=== PATIENT | female | born 1995 | race Caucasian/White ===

== ENCOUNTER 2019-09-22 23:24 | Emergency (ER) | payer MEDICAID, SELFPAY ==
[2019-09-22 23:25] VITALS: BP 119/68; PULSE 89; RESP 18; TEMP 36.6; O2SAT 98; BMI 28.3
--- NOTE | 2019-09-22 23:57 | ED.VIS.FEGU ---
History of Present Illness Chief Complaint: Female C/O Informant: Patient Pain: Vaginal Pain Onset: Days - 5-6 Context: Gradual Onset Timing: Continuous Quality: Burning Location: - - vaginal; also suprapubic abd aching Current Severity: Moderate Maximum Severity: Moderate Worsened by: - - urinating Relieved by: - - nothing Issue: Negative for: Vaginal bleeding - Vaginal Discharge Quality: Thin, - - clear Severity: Light Associated Symptoms: Dysuria, Urgency. Negative for: Frequency, Hematuria, Missed Period, Irregular Period Sexually: Active, Single Partner Control: No control P: 1 Narrative: Patient presents with vaginal discomfort into her suprapubic area, also causing nausea and vomiting at times, requesting a check for STDs and for possible urine infection. Most of her discomfort is vaginal and is worse with urinating, but she is also having suprapubic discomfort. She also states she was having abdominal problems prior to the onset of the symptoms. Past Medical History - Allergies and Home Meds Allergies/Adverse Reactions: Allergies Penicillins Allergy (Verified 09/22/19 23:28) Rash WRONG Primary Care Physician: Care Physician,No Primary [Primary Care Provider] - Past Medical History: None Lives: Friends Smoking Status: Current every day smoker Review of Systems General: Denies: Chills, Fever, Sweats Eyes: Denies: Visual changes - bilaterally, Diplopia ENT: Denies: Rhinorrhea, Sore throat Cardiovascular: Denies: Chest pain, Palpitations Respiratory: Denies: Dyspnea, Cough, Dyspnea on exertion Gastrointestinal: Reports: Abdominal pain, Nausea, Vomiting. Denies: Diarrhea, Melena, Hematochezia Genitourinary: Reports: Dysuria, - - vagina pain, discharge - see hpi. Denies: Hematuria, Frequency Musculoskeletal: Denies: Back pain, Extremity Pain Skin: Denies: Rash, Wounds Neurological: Denies: Headache, Weakness, Numbness Physical Exam Vital Signs/Narrative: Vital Signs Temp Pulse Resp BP Pulse Ox 09/22/19 23:25 97.9 F 89 18 119/68 98 Inital Vital Signs reviewed: Yes General: Well nourished, Well developed, - - well-appearing, nad Head: Normocephalic, Atraumatic Eyes: Perrl, EOMI ENT: Moist mucous membranes, No rhinorrhea Neck: Supple, Nontender Cardiovascular: Regular rate, Regular rhythm, No murmurs Respiratory: No distress, CTA bilaterally, Chest nontender Abdomen: Soft, Nondistended, Normal bowel sounds, Tender - across lower abd. Negative for: Guarding, Rebound tenderness : Speculum exam: Normal external genitalia, No vaginal lesions, No blood in vault, No active bleeding, Cervicitis - central part of cervix irritated mildly, friable, Thin vaginal discharge - mucousy, white, homogenous Bimanual exam: No cervical motion tenderness, Os closed Back: Nontender, Normal Inspection. Negative for: CVA tenderness Extremities: Nontender, No edema Skin: Normal color, No rash, No Trauma Neurological: Alert, Oriented x3, Cranial nerves II-XII grossly intact, Normal Strength, Normal Sensation, Normal Gait Psychological: Normal affect, Normal Mood Diagnostic/Tx/Re-eval Laboratory Tests 09/23/19 09/23/19 Range/Units 00:00 00:00 Urine Color Yellow (Yellow) Urine Clarity Cloudy (Clear) Urine pH 5.0 (5.0 - 8.0) Ur Specific [place] 1.025 (1.002-1.030) Urine Protein 30 H (Negative) mg/dl Urine Glucose (UA) Normal (Normal) mg/dl Urine Ketones 15 H (Negative) mg/dl Urine Occult Blood Negative (Negative) /ul Urine Nitrite Negative (Negative) Urine Bilirubin 3 H (Negative) mg/dL Urine Urobilinogen 8 H (Normal) mg/dl Ur Leukocyte Esterase 100 H (Negative) /ul Urine RBC 0 SEEN (0-5) /hpf Urine WBC 0-5 SEEN (0-5) /hpf Ur Squamous Epith Cells 0 SEEN (5-10) /hpf Amorphous Sediment 4+ Urine Bacteria 0 SEEN (None Seen) /hpf Urine Mucus 0 SEEN (<or=2+) /hpf Urine Test Negative Negative - Treatment/Re-Evaluation Treatment: Azithromycin, - - rocephin 250 IM - Medical Decision/Diagnostic Studies GC and Chlamydia cultures sent: Yes - and wet prep Wet prep showed a few white blood cells, did not specify any clue cells, and trichomonas was negative. GC and chlamydia were sent, patient is highly suspicious and so was treated empirically, states that her ex-boyfriend that she had intercourse with did have a history of gonorrhea in the past. She does not know if he was treated for it or not. Urine does not appear infected and is negative. Advised to follow-up for symptoms of persist. ED Disposition - Plan for ED Patient: Disposition: Home or Assisted Living Diagnosis: Vaginal discharge Instructions: CERVICITIS (STD), Treated Referrals: Alvin Kapoor MD [STAFF PHYSICIAN] - 1 Week if not improving
[2019-09-23 00:09] LABS: Bacteria 0 SEEN /hpf (None Seen); Mucous, Urine 0 SEEN /hpf (<or=2+); Red Blood Cells-Urine 0 SEEN /hpf (0-5); Squamous Epithelial Cells - UA 0 SEEN /hpf (5-10)
[2019-09-23 00:15] LABS: Color, Urine Yellow (Yellow); Glucose, Dipstick Normal (Normal); Ketone-Dipstick 15 mg/dl (Negative); Leukocyte Esterase-Dipstick 100 /ul (Negative); Nitrite-Dipstick Negative (Negative); Occult Blood-Urine Negative /ul (Negative); Protein-Dipstick 30 mg/dl (Negative); Specific Gravity, Urine 1.025 (1.002-1.030); Urine Clarity Cloudy (Clear); Urine Urobilinogen 8 mg/dl (Normal)
[2019-09-23 00:21] LABS: Internal QC Validated? YES +Cl - CLEAR BKGD; Pregnancy, Urine Negative Negative
[2019-09-23 00:26] LABS: Urine Bilirubin Dipstick 3 mg/dL (Negative)
[2019-09-23 00:28] LABS: Amorphous Sediment 4+; White Blood Cells 0-5 SEEN /hpf (0-5)
[2019-09-23] MEDS: Azithromycin 250 MG Tablet 1000 MG PO (01:01)
[2019-09-23] MEDS: Ibuprofen 600 MG Tablet PO (01:02)
[2019-09-23] MEDS: Ceftriaxone 500 MG Vial 250 MG IM (01:07)
[2019-09-23 02:02] LABS: Chlamydia Trachomatis by PCR Negative (Negative); Neisserai gonorrhoeae by PCR Positive (Negative); Probe Check PASS
--- NOTE | 2019-09-23 02:17 | ED.RN ---
ATTEMPTED TO CALL PT TO UPDATE ON LAB RESULTS, +GONORRHEA, CELL PHONE NOT ABLE TO TAKE MESSAGES, CELL PHONE DID NOT RING. PT DOESN'T NEED FURTHER TREATMENT.
--- NOTE | 2019-11-02 20:24 | ED.RN ---
patient called in and asked about STD test results
== END 2019-09-23 01:20 | disposition home or self-care (01) ==
PROVIDERS: Emergency Provider Emergency Medicine
DX: N89.8 Other specified noninflammatory disorders of vagina (principal); R10.2 Pelvic and perineal pain; R11.2 Nausea with vomiting, unspecified; R30.0 Dysuria; F17.200 Nicotine dependence, unspecified, uncomplicated
CPT/HCPCS: 81001; 81025; 87210; 87491; 87591; 96372; 99283

== ENCOUNTER 2020-03-19 23:29 | Observation (INO) | payer MEDICAID, SELFPAY ==
[2020-03-19 23:30] VITALS: BP 134/91; PULSE 82; RESP 16; TEMP 36.8; O2SAT 100; BMI 27.7
--- NOTE | 2020-03-19 23:39 | CT_ITS ---
STUDY: CT ABDOMEN AND PELVIS WITHOUT CONTRAST REASON FOR EXAM: Female, 25 years old. DIAGNOSED W/ LEFT OVARIAN CYST LAST FRIDAY, DIFFUSE ABD PAIN RADIATION DOSAGE (If Supplied By Facility): CTDIvol = ( 11.12 ) mGy, DLP = ( 778.43 ) mGycm TECHNIQUE: Transaxial images were obtained from the dome of the diaphragm to the symphysis pubis without oral contrast, and without intravenous contrast. Sagittal and coronal images were reconstructed. Individualized dose optimization techniques were used for this CT. COMPARISON: None. FINDINGS: The visualized lung bases are unremarkable. The visualized portions of the heart are within normal limits. Normal liver. Normal gallbladder and extrahepatic biliary system. Normal spleen. Normal pancreas. Normal bilateral adrenal glands. Normal right kidney. Normal left kidney. Normal visualized stomach. Normal small intestine. Normal colon. There is a tubular, thick-walled appendix (> 9 mm), suggesting acute appendicitis. Normal abdominal aorta. Normal inferior vena cava. Normal retroperitoneum. Normal urinary bladder. Follicles are seen in both ovaries. There is enlargement of a left inguinal lymph node measuring 2 x 2 x 2.6 cm suggesting reactive hyperplasia. Normal abdominal wall. Normal osseous structures. CT/Abdomen/Pelvis W IV Cont ONLY IMPRESSION: Possible acute appendicitis. Electronically Signed: Noreen Martel, at 1:01 EDT Tel , Service support ,
[2020-03-20] VITALS (8 sets, daily range): BP systolic 117–145; BP diastolic 62–98; PULSE 68–108; RESP 16–20; TEMP 36.1–36.6; O2SAT 97–100; BMI 27.7; BMI 28.0
[2020-03-20 00:04] LABS: Bacteria 0 SEEN /hpf (None Seen); Mucous, Urine 0 SEEN /hpf (<or=2+); Red Blood Cells-Urine 0 SEEN /hpf (0-5)
[2020-03-20 00:06] LABS: Color, Urine Yellow (Yellow); Glucose, Dipstick Normal (Normal); Ketone-Dipstick Negative (Negative); Leukocyte Esterase-Dipstick 500 /ul (Negative); Nitrite-Dipstick Negative (Negative); Occult Blood-Urine Negative /ul (Negative); Protein-Dipstick 15 mg/dl (Negative); Specific Gravity, Urine 1.015 (1.002-1.030); Urine Bilirubin Dipstick Negative (Negative); Urine Clarity Clear (Clear); Urine Urobilinogen 1 mg/dl (Normal); Urine pH 6.5 (5.0 - 8.0)
[2020-03-20 00:09] LABS: Internal QC Validated? YES +Cl - CLEAR BKGD; Pregnancy, Urine Negative Negative
[2020-03-20 00:13] LABS: Squamous Epithelial Cells - UA 5-10 SEEN /hpf (5-10); White Blood Cells 10-25 SEEN /hpf (0-5)
--- NOTE | 2020-03-20 00:13 | ED.DCSUM_ITS ---
History of Present Illness Chief Complaint: Abd Pain Narrative: Patient presenting for evaluation secondary to abdominal pain. Patient reports that over the course of about the last 2 weeks she has been dealing with abdominal pain. Patient reports last week she was seen at [facility], and had CT imaging of her abdomen and pelvis which showed a 5 cm left-sided ovarian cyst. Patient tells me that she has been having left-sided abdominal pain that is been continuous over the course of the last 2 weeks, it is worse with any sort of movement. This been associated with nausea and occasional vomiting. Patient denies any dysuria. She denies any vaginal bleeding. She denies any diarrhea. Patient states that the pain is now migrated somewhat over to the right side of her abdomen. She tells me that she was told to follow-up with her [employer], she messaged them online and requested an ultrasound but they told her they could not perform an ultrasound until an order was placed by the AUTOMATIC GRINDING MACHINE OPERATOR. She states that she was having continued pain tonight, her [employer] GRINDING MACHINE OPERATOR had not messaged her back, so she decided to call the ambulance to be brought to the emergency department. Patient denies any history of abdominal surgeries. She is unsure if she is . Review of systems otherwise negative. Past Medical History - Allergies and Home Meds Allergies/Adverse Reactions: Allergies Penicillins Allergy (Verified 09/22/19 23:28) Rash WRONG Primary Care Physician: Care Physician,No Primary [Primary Care Provider] - Prior records reviewed: Yes Past Medical History: - - Anxiety Surgical History: no surgical history Lives: With Family Smoking Status: Former smoker Alcohol: Occasional Drugs: Marijuana Review of Systems All systems negative except as indicated General: Denies: Chills, Fever, Sweats Eyes: Denies: Visual changes - bilaterally, Diplopia ENT: Denies: Rhinorrhea, Sore throat Cardiovascular: Denies: Chest pain, Palpitations Respiratory: Denies: Dyspnea, Cough, Dyspnea on exertion Gastrointestinal: Reports: Abdominal pain, Nausea Genitourinary: Denies: Dysuria, Hematuria, Frequency Musculoskeletal: Denies: Back pain, Extremity Pain Skin: Denies: Rash, Wounds Neurological: Denies: Headache, Weakness, Numbness Physical Exam Vital Signs/Narrative: Vital Signs Temp Pulse Resp BP Pulse Ox 03/19/20 23:30 98.2 F 82 16 134/91 H 100 Inital Vital Signs reviewed: Yes General: Well nourished, Well developed, No Acute Distress Head: Normocephalic, Atraumatic Eyes: Perrl, EOMI ENT: Moist mucous membranes, No rhinorrhea Neck: Supple, Nontender Cardiovascular: Regular rate, Regular rhythm, No murmurs Respiratory: No distress, CTA bilaterally, Chest nontender Abdomen: Soft, Nondistended, Normal bowel sounds, Tender - Fuhs nonlocalizing tenderness with no guarding or rebound. No palpable masses. Back: Nontender, Normal Inspection Extremities: Nontender, No edema Skin: Normal color, No rash Neurological: Alert, Oriented x3, Cranial nerves II-XII grossly intact, Normal Strength, Normal Sensation Psychological: Normal affect, Normal Mood Diagnostic/Tx/Re-eval - Medical Decision Making Patient presented secondary to nonlocalizing abdominal pain. IV was established laboratory studies were obtained. CBC unremarkable, chemistry unremarkable. Urinalysis demonstrates evidence of urinary tract infection. CT abdomen and pelvis with IV contrast demonstrates evidence of possible appendicitis with a dilated greater than 9 mm appendix. I went back and reevaluated the patient, she really does not localize her pain over the right lower quadrant, it is more so in the left abdomen but really diffusely with no guarding or rigidity. Patient has no leukocytosis or fever or shift. I discussed patient's case with covering surgery Dr. Wayne, and we decided to do a repeat scan with oral contrast. Repeat CT scan showed nonfilling of the appendix with contrast still concerning for early appendicitis. I discussed this again with covering surgery, decision was made to take the patient for appendectomy ED Disposition - Plan for ED Patient: Disposition: Acute Care Hospital [facility] Diagnosis: Acute appendicitis
[2020-03-20 00:20] LABS: Absolute Neutrophil Count 6.1 X10^3/uL (2.0-7.7); Basophil# 0.07 X10^3/uL; Basophil% 0.7 % (0-1); Hematocrit 41.3 % (37-47); Hemoglobin 13.6 g/dL (12.0-15.0); Lymphocyte % 29.7 % (19-41); Mean Corp Hgb Conc 32.9 g/dL (32-36); Mean Corpuscular Hgb 29.6 pg (27.0-32.0); Mean Platelet Vol. 10.4 fl (6.2-12.0); Monocyte# 0.61 X10^3/uL; Monocyte% 6.3 % (0-10); NRBC Flagged by Analyzer 0 % (0-5); Neutrophil # 6.05 X10^3/uL (2.7-7.7); Platelet Count 286 K/mm3 (150-450); RBC Distribution Width CV 11.6 % (11.6-14.6); RBC Distribution Width SD 37.7 fl (35.1-43.9); Red Blood Count 4.59 M/mm3 (4.2-5.4); White Blood Count 9.8 K/mm3 (4.4-11.0)
[2020-03-20] MEDS: Dicyclomine 20 MG/2 ML Vial IM (00:25)
[2020-03-20 00:32] LABS: Anion Gap 5 (5-15); BUN 10 mg/dL (7-18); Calcium,Total 8.5 mg/dL (8.5-10.1); Chloride 108 mmol/L (98-107); Creatinine, Serum 0.77 mg/dL (0.55-1.02); EST Glomerular Filtration Rate 97 mL/min (>60); Est Glom Filt Rate - Afr Amer 117 mL/min (>60); Estimated Creatinine Clearance 103.65 ml/min; Glucose 87 mg/dL (74-106); Potassium 4.1 mmol/L (3.5-5.1); Sodium Level 139 mmol/L (136-145)
--- NOTE | 2020-03-20 01:22 | CT_ITS ---
STUDY: CT ABDOMEN AND PELVIS WITHOUT CONTRAST REASON FOR EXAM: Female, 25 years old. POSSIBLE APPY. SURGEON REQUEST ORAL CM RADIATION DOSAGE (If Supplied By Facility): CTDIvol = ( 7.37 ) mGy, DLP = ( 366.42 ) mGycm TECHNIQUE: Transaxial images were obtained from the dome of the diaphragm to the symphysis pubis without oral contrast, and without intravenous contrast. Sagittal and coronal images were reconstructed. . Current exam was done at 0316 hours. Individualized dose optimization techniques were used for this CT. COMPARISON: Contrast-enhanced CT scan done 0004 hours. FINDINGS: The visualized lung bases are unremarkable. The visualized portions of the heart are within normal limits. Normal liver. Normal gallbladder and extrahepatic biliary system. Normal spleen. Normal pancreas. Normal bilateral adrenal glands. Normal right kidney. Normal left kidney. Normal visualized stomach. Normal small intestine. Normal colon. The appendix is seen on series 2, axial images 108-116 and it is distended with fluid, with diameter of 1.2 cm. Oral contrast material is seen within the adjacent cecum, however, there is no demonstrated extension of oral contrast into the appendix. There is no infiltration of adjacent fat, however, findings are still highly suspicious for acute appendicitis. Normal abdominal aorta. Normal inferior vena cava. Normal retroperitoneum. Normal urinary bladder. Normal abdominal wall. Normal osseous structures. CT/Abdomen/Pel W ORAL Cont Only IMPRESSION: Enlarged fluid-distended appendix. There is no extension of oral contrast into the appendix and findings are highly suspicious for acute appendicitis. Electronically Signed: Hunter Pulliam MD at 4:04 EDT , Service support ,
[2020-03-20] MEDS: metroNIDAZOLE 500 MG/100 ML BAG 100 MG IV (04:48)
[2020-03-20] MEDS: Ciprofloxacin 400 MG/200 ML BAG 200 MG IV (05:00)
--- NOTE | 2020-03-20 05:32 | PCM.HP.STD ---
Problem List (1) Acute appendicitis Status: Acute Qualifiers: Acute appendicitis type: unspecified acute appendicitis type Qualified Code(s): K35.80 - Unspecified acute appendicitis History of Present Illness Date of Admission: 03/20/20 The patient is a 25 year old F who presents with abdominal pain and nausea and vomiting. Patient reports that she was in the [facility] emergency room about a week ago with left lower quadrant pain. At that time she had a CT scan which showed a left ovarian cyst and at that time her appendix was read as normal. She says that about 2 days ago she started having vomiting and the pain shifted to the right side. No fevers or chills. She is still vomiting today with nausea. Past Medical History Allergies Penicillins Allergy (Verified 09/22/19 23:28) Rash WRONG Home Medications: Ambulatory Orders Medication Instructions Recorded NK 09/22/19 Surgical History: no surgical history Lives: With Family Smoking Status: Former smoker Alcohol: Occasional Drugs: Marijuana - *Family History Maternal History Items: No pertinent history Review of Systems Constitutional: Denies: Anorexia, Fever HEENT: Denies: Difficulty Swallowing Respiratory: Denies: Cough, Shortness of Breath Gastrointestinal: Reports: Abdominal Pain, Nausea, Vomiting Genitourinary: Denies: Dysuria, Frequency Musculoskeletal: Denies: Joint Tenderness Skin: Denies: Jaundice Psychiatric: Reports: Anxiety Hematologic/ Lymphatic: Denies: Anemia VTE Information - Inpt Only VTE Present on Admission: No VTE Mechan Device Prophylaxis: SCD's Patient Problems: Active and Suspected Problems Acute appendicitis (Acute) - Physical Exam Vitals/I&O's: Vital Signs Temp Pulse Resp BP Pulse Ox 97.9 F 79 18 145/98 H 100 03/20/20 04:55 03/20/20 04:55 03/20/20 04:55 03/20/20 04:55 03/20/20 04:55 Oxygen Delivery Method Room Air Weight: 171 lb 15.369 oz Body Mass Index (BMI) 27.7 General: Alert, Oriented x3 Lungs: Normal air movement Cardiovascular: Regular rate, Regular Rhythm Abdomen: Soft, Non-Distended, Tender - Tender in the right lower quadrant with no guarding or rebound Musculoskeletal: No Muscle Wasting Neurological: Cranial nerves II-XII grossly intact Psych/Mental Status: Normal Affect Laboratory Results 03/20/20 00:00: Urine Test Negative 03/20/20 00:00: Urine Color Yellow, Urine Clarity Clear, Urine pH 6.5, Ur Specific [place] 1.015, Urine Protein 15 H, Urine Glucose (UA) Normal, Urine Ketones Negative, Urine Occult Blood Negative, Urine Nitrite Negative, Urine Bilirubin Negative, Urine Urobilinogen 1 H, Ur Leukocyte Esterase 500 H, Urine RBC 0 SEEN, Urine WBC 10-25 SEEN, Ur Squamous Epith Cells 5-10 SEEN, Urine Bacteria 0 SEEN, Urine Mucus 0 SEEN 03/20/20 00:12: WBC 9.8, RBC 4.59, Hgb 13.6, Hct 41.3, MCV 90.0, MCH 29.6, MCHC 32.9, RDW Std Deviation 37.7, RDW Coeff of Linda 11.6, Plt Count 286, MPV 10.4, Immature Gran % (Auto) 0.300, Neut % (Auto) 62.0, Lymph % (Auto) 29.7, [place] % (Auto) 6.3, Eos % (Auto) 1.0, Baso % (Auto) 0.7, Absolute Neuts (auto) 6.1, Absolute Lymphs (auto) 2.90, Nucleated RBC % 0 03/20/20 00:12: Sodium 139, Potassium 4.1, Chloride 108 H, Carbon Dioxide 26.0, Anion Gap 5, BUN 10, Creatinine 0.77, Estim Creat Clear Calc 103.65, Est GFR (MDRD) Af Amer 117, Est GFR (MDRD) Non-Af 97, BUN/Creatinine Ratio 13.0, Glucose 87, Calcium 8.5 03/20/20 04:44: COVID-19 (PRAVEEN) Pending Clinical Impression(s) from Imaging Studies Abdomen/Pelvis CT 03/19/20 23:39 IMPRESSION: Possible acute appendicitis. Electronically Signed: Noreen Martel, at 1:01 EDT Tel , Service support , Abdomen CT 03/20/20 01:22 IMPRESSION: Enlarged fluid-distended appendix. There is no extension of oral contrast into the appendix and findings are highly suspicious for acute appendicitis. Electronically Signed: Hunter Pulliam MD at 4:04 EDT , Service support , Assessment/Plan All Active Problems Acute appendicitis (Acute) Abrasion (Acute) Anger reaction (Acute) 25-year-old female with acute appendicitis 1. Patient reports that she has been having nausea vomiting and pain for [address] scan showed a dilated fluid-filled appendix but her white count and differential are normal. CT scan was repeated with oral contrast and there was no filling of the appendix and this was highly suggestive of acute appendicitis. 2. I discussed laparoscopic appendectomy with the patient in detail. I discussed the possibility of a normal appendix. I discussed the risks including not limited to bleeding, infection, injury to other organ such as the ureter, bowel, colon. Patient agrees to proceed. I did discuss exploration of her ovaries during surgery as well. If needed I will call [employer] if there are any abnormalities to the ovaries. Patient was given Cipro and Flagyl in the emergency room due to penicillin allergy. Patient will go to surgery this morning. 3. We discussed the current risks associated with COVID-19. While it is understood that there is a community spread of COVID-19, the risk of jatin COVID-19 while at [facility] ([facility]) is very low; however, the risk cannot be completely mitigated because of the community spread of the disease. We discussed in detail the risk of exposure to and/or potential harm posed by the COVID-19 virus with having a surgery/procedure at this time versus the risk of delaying the surgery/procedure. It is not possible to know either the risk of delaying the surgery or procedure or chance of getting an infection with perfect accuracy, but a joint decision was made to proceed at this time with the scheduled surgery/procedure as indicated on the consent form. Patient was notified that we will need to comply with any screening or testing [facility] wishes to perform or that surgery may be delayed for any positive results. Abhishek Wayne MD Pager: [facility] [address] [place] [address], [address] [place] [address] Office:
[2020-03-20 06:08] LABS: Probe Check PASS; Specimen Processing Control PASS
[2020-03-20] MEDS: Lactated Ringers 1,000 ML 100 ML IV ×2 (06:09→07:31)
--- NOTE | 2020-03-20 06:09 | APP_PTH ---
PATIENT: ZAKIYA LIGHT LOC: MS3 U#:[id number] AGE/SX: 25/F ROOM: MS313 RE03/20/[address]: Dr. Abhishek Wayne MD : 1995 BED: 1 DIS: 03/20/2020 SPEC #: [id number] RECD: 03/20/20 07:44 STATUS: ISAAC PRINCE #: [id number] VILMA: 03/20/20 06:[address]: Abhishek Wayne DEPT: SURGICAL PATHOLOGY RECD BY: Ann Ruvalcaba ENTERED: 03/20/20 09:14 SP TYPE: APPENDIX OTHR DR: No Primary Care Phys Tissues: A - Appendix, NOS B - Fallopian tube Procedures: Surgery Specimen Level III Surgery Specimen Level IV HEADER OPERATION: Laparoscopic appendectomy PRE-OP DIAGNOSIS: Acute appendicitis TISSUE SUBMITTED: A - Appendix, B - Peritubal mass left fallopian tube MICROSCOPIC DIAGNOSIS A. Appendix, appendectomy: Acute appendicitis. Minimal serosal reactive changes. B. Peritubal mass left fallopian tube: Paratubal cyst. LIBAN:patricia 03/21/20 MICROSCOPIC DESCRIPTION Slides are reviewed. GROSS DESCRIPTION A - Received in fixative is one container labeled with the patient's name and designated appendix. The specimen consists of an appendix measuring 9 cm in length and up to 1 cm in diameter. No gross perforations are evident. Sections reveal a patent lumen with fecal material. No mass lesion is identified. Associate Director Of Biostatistics sections are submitted in one cassette. B - Received in fixative is one container labeled with the patient's name and designated peritubal mass left fallopian tube. The specimen consists of a smooth, glistening cystic structure measuring 2.6 x 2.2 x 2 cm. The external surface is smooth and glistening. The external surface is inked and the specimen is sectioned to reveal smooth, glistening inner cyst wall lining. The wall measures 0.1 cm in average thickness. The cyst contains clear fluid. The specimen is totally submitted in one cassette. / AM:patricia 03/20/20 TC:2 CPT: 34618, [id number]
[2020-03-20] MEDS: Bupiv/Epi 0.25% 30 ML Vial (07:00)
--- NOTE | 2020-03-20 08:00 | OP.PCM_ITS ---
Problem List (1) Acute appendicitis Status: Acute Qualifiers: Acute appendicitis type: unspecified acute appendicitis type Qualified Code(s): K35.80 - Unspecified acute appendicitis Report of Operation Date of Procedure: 03/20/20 Pre-Operative Diagnosis: Acute appendicitis Post-Operative Diagnosis: Acute appendicitis. Left peritubular mass Surgery/Procedure Performed:: Laparoscopic appendectomy. Excision of left peritubular mass Specimen's removed: 1. Appendix. 2. Peritubular mass from the left side Description of Procedure: The patient was brought into the operating room and general anesthesia was induced. The left arm was tucked and the abdomen was prepped and draped in usual sterile fashion. A small midline incision was made superior to the umbilicus and deepened to the level of the fascia. The fascia was elevated and incised. The peritoneum was also elevated and incised. A finger sweep was performed and a balloon trocar was placed into the abdomen and inflated. The abdomen was insufflated to 15 mmHg and the camera was inserted and the abdomen was inspected for any injuries upon entering the abdomen. There were none. The patient was placed in Trendelenburg position and a 5 mm ports placed in the left lower quadrant and suprapubic areas under direct visualization. Next using atraumatic bowel graspers the appendix was identified. The appendix was grasped and elevated and Enseal was used to take down the mesoappendix. A stapler was used to come across the base of the appendix. The appendix was then placed in Endo Catch bag and removed through the umbilical incision. The staple line was inspected and found to be hemostatic and intact. The right ovary was inspected and appeared normal. The left ovary was inspected and appeared normal as well. There was a small cystic structure adjacent to the left fallopian tube. I had Dr. Talbert coming to the operating room and evaluate. She believe this is likely a dermoid cyst and she recommended excision as it was over 2 cm. It appeared to be from the fallopian tube. Using Enseal this was taken from its attachments and placed in an Endo Catch bag and removed. There was good hemostasis on the fallopian tube. The fallopian tube and fimbria were intact at the end of the excision. The 2 5 mm ports are removed under direct visualization. The balloon trocar was deflated and removed and all the air was removed from the abdomen. The umbilical incision fascia was closed with an 0 Vicryl [id number] suture. The incisions were then irrigated with saline and dried. Local anesthetic was injected into the incision sites. The skin incisions were then closed with interrupted 4-0 Monocryl suture and Steri- Strips. Bandages were applied and the patient was awoken and taken to PACU in stable condition. Patient tolerated the procedure well. - Admit VTE Documentation VTE Mechan Device Prophylaxis: SCD's
--- NOTE | 2020-03-20 08:04 | DCINST_ITS ---
Discharge Diet: Light diet - advance as tolerated Discharge Activity: May Not Drive - for 3-5 days or while taking narcotic pain meds. May shower in (days): 1 Lifting Restrictions: 20 lbs for 2 weeks Call your doctor if your incision/area has: Continuous Slow Oozing, Sudden Increased Bleeding, Increased Pain/ Swelling, Increased Redness, Foul Smelling Discharge Call your doctor if you observe: Fever of 101 or Higher Suture Line Care: Avoid Pulling/Pushing, Avoid Pinching/Bending Additional Dressing/Incision Instructions:: Keep dressing clean and dry. Change or remove dressing in 2 days. Leave steri strips for 1 week. May protect with a gauze bandaid. Medications to take at Discharge traMADol [Ultram] 100 mg PO Q6H PRN PRN 4 Days #20 tablet 03/20/20 Allergies/Adverse Reactions: Allergies Penicillins Allergy (Verified 09/22/19 23:28) Rash WRONG Test Results: Test results from this visit will be discussed in further detail at your follow- up appointment, if applicable. Please Follow Up With: Abhishek Wayne MD When: Please call to schedule 2 week follow up appointment. [phone]
[2020-03-20] MEDS: Morphine 2 MG/ML Syringe IV (08:26)
--- NOTE | 2020-03-20 10:49 | PHA.DC.MC ---
Pharmacy Service has performed discharge medication reconciliation and counseling for this patient. The patient was counseled on the following discharge medications and changes in medications for homegoing were reviewed. 1. TRAMADOL The Reason for Use, instructions for use, and potential side effects were reviewed for all new medications. The patient's questions regarding all of their medications were answered. The patient was able to verbally demonstrate an understanding of their discharge medications. Home Medications traMADol [Ultram] 100 mg PO Q6H PRN PRN 4 Days #20 tab 03/20/20 The patient's discharge medication list was reviewed for discrepancies and discrepancies were resolved.
[2020-03-20] MEDS: traMADol 50 MG Tablet 100 MG PO (11:25)
== END 2020-03-20 14:29 | disposition home or self-care (01) ==
LOC: ED 03-20 04:34 → SDC 03-20 04:43 → MS3 03-20 04:51 → SDC 03-20 08:39 → MS3 03-20 08:39
PROVIDERS: Admitting Provider Surgery; Emergency Provider Emergency Medicine; Visit Provider Surgery
PROC: 0DTJ4ZZ Resection of Appendix, Percutaneous Endoscopic Approach (ICD-10-PCS; CPT 44970; principal; 2020-03-20 06:15)
DX: K35.80 Unspecified acute appendicitis (principal); N83.8 Other noninflammatory disorders of ovary, fallopian tube and broad ligament; Z87.891 Personal history of nicotine dependence
CPT/HCPCS: 00840; 44970; 58661; 74176; 74177; 80048; 81001; 81025; 85025; 87635; 88302; 88304; 88305; 96361; 96372; 96374; 97802; 99285; G2023; J7120; Q9967; A4216; C1760; J0744; J2405; U0003

== ENCOUNTER 2020-04-07 03:04 | Emergency (ER) | payer MEDICAID, SELFPAY ==
[2020-03-20 08:10] VITALS: BMI 28.0
[2020-04-07 03:05] VITALS: BP 125/74; PULSE 74; RESP 18; TEMP 36.3; O2SAT 100; BMI 27.8
[2020-04-07 03:22] LABS: Absolute Lymphocyte Count 3.76 X10^3/uL (0.83-4.51); Absolute Neutrophil Count 5.5 X10^3/uL (2.0-7.7); Basophil# 0.08 X10^3/uL; Basophil% 0.8 % (0-1); Eosinophil# 0.11 X10^3/uL; Eosinophils% 1.1 % (0-5); Hematocrit 38.9 % (37-47); Hemoglobin 13.1 g/dL (12.0-15.0); Lymphocyte # 3.76 X10^3/ul (4.0); Lymphocyte % 37.5 % (19-41); Mean Corp Hgb Conc 33.7 g/dL (32-36); Mean Corpuscular Hgb 30.3 pg (27.0-32.0); Mean Corpuscular Volume 89.8 fL (81-99); Mean Platelet Vol. 10.8 fl (6.2-12.0); NRBC Flagged by Analyzer 0 % (0-5); Neutrophil # 5.48 X10^3/uL (2.7-7.7); Neutrophil % 54.5 % (47-70); Platelet Count 221 K/mm3 (150-450); RBC Distribution Width CV 11.7 % (11.6-14.6); RBC Distribution Width SD 37.1 fl (35.1-43.9); Red Blood Count 4.33 M/mm3 (4.2-5.4)
[2020-04-07 03:23] LABS: Bacteria 0 SEEN /hpf (None Seen)
[2020-04-07] MEDS: 0.9% Normal Saline 1,000 ML 150 ML IV (03:23)
[2020-04-07] MEDS: LORazepam 2 MG/ML Syringe 0.5 MG IV (03:23)
[2020-04-07] MEDS: Ondansetron 4 MG/2 ML Vial IV (03:24)
[2020-04-07 03:25] LABS: Color, Urine Amber (Yellow); Glucose, Dipstick Normal (Normal); Ketone-Dipstick 15 mg/dl (Negative); Leukocyte Esterase-Dipstick 25 /ul (Negative); Nitrite-Dipstick Negative (Negative); Occult Blood-Urine 250 /ul (Negative); Protein-Dipstick 30 mg/dl (Negative); Urine Clarity Sl. Cloudy (Clear); Urine Urobilinogen 1 mg/dl (Normal)
[2020-04-07 03:27] LABS: Urine Bilirubin Dipstick 1 mg/dL (Negative)
[2020-04-07 03:31] LABS: Internal QC Validated? YES +Cl - CLEAR BKGD; Pregnancy, Serum, hCG Quali. NEGATIVE Negative
[2020-04-07 03:33] LABS: White Blood Cells 0-5 SEEN /hpf (0-5)
[2020-04-07 03:34] LABS: Mucous, Urine 2+ /hpf (<or=2+); Red Blood Cells-Urine 50-100 SEEN /hpf (0-5); Squamous Epithelial Cells - UA 25-50 SEEN /hpf (5-10)
[2020-04-07 03:39] LABS: AST(SGOT) 13 U/L (15-37); Alanine Aminotransfer ALT/SGPT 24 U/L (13-56); Albumin, Serum 3.9 g/dL (3.2-5.0); Alkaline Phosphatase 68 U/L (45-117); Anion Gap 4 (5-15); BUN 9 mg/dL (7-18); BUN/Creat Ratio 11.3 RATIO (10-20); Calcium,Total 8.6 mg/dL (8.5-10.1); Chloride 110 mmol/L (98-107); EST Glomerular Filtration Rate 93 mL/min (>60); Est Glom Filt Rate - Afr Amer 112 mL/min (>60); Estimated Creatinine Clearance 92.02 ml/min; Globulin 3.8 g/dL (2.2-4.2); Glucose 86 mg/dL (74-106); Lipase 95 U/L (73-393); Potassium 3.6 mmol/L (3.5-5.1); Protein, Total 7.7 g/dL (6.4-8.2); Sodium Level 140 mmol/L (136-145)
--- NOTE | 2020-04-07 03:40 | ED.DCSUM_ITS ---
- ER Visit Summary Date of Service: 04/07/20 Chief Complaint: [Abdominal pain] History of Present Illness: The patient is a 25 F [presents to the emergency department complaint of abdominal pain that started about an hour ago. Patient states that she was sitting and texting when she began feeling nauseated and began having trouble breathing and felt like her hands got sweaty and she felt tingly. Patient called EMS who brings her to the emergency department. Patient had recent appendectomy. She denies any fevers. She denies recent illness. She does have history of anxiety. Patient states that she has been getting worked up a lot. Currently she is not taking anything for anxiety at home. Zeferino valverde denies any urinary symptoms. She is currently on her menstrual period and describes some abdominal cramping.] Physical Examination: [HEENT-PERRLA, EOMI. Cranial nerves II through XII grossly intact. TMs clear. Mucous membranes moist. No adenopathy. Cardiovascular-regular rate and rhythm without murmur or ectopy Lungs-clear to auscultation, chest wall stable without crepitus or subcu emphysema Abdomen-normoactive bowel sounds, soft. Patient has some mild tenderness somewhat diffusely. Patient's incisions from laparoscopic appendectomy healing well without signs of infection. Extremities-intact ?4, normal range of motion, normal pulses, atraumatic] Test Results: [CBC with differential was normal. Urinalysis obtained showed blood but no signs of infection which would be consistent with patient being on her menstrual period.] Demonstrates unremarkable. hCG was negative. LFTs normal. Lipase normal. Emergency Department Course and Treatment: [ Established. Patient was given Ativan 0.5 mg IV as well as Zofran 4 mg IV. Patient felt significantly improved. She is resting comfortably.] I do not feel any imaging is indicated at this time. I suspect the abdominal discomfort may have been related to menstrual cramping. Her abdomen is benign on exam. I suspect she likely had an anxiety reaction. Treatment Plan: [Patient advised to follow-up with primary care physician within next 3 to 5 days. Patient advised to return if worsening pain, fever, vomitin g, or condition should worsen anyway.] Disposition: [Discharged home in stable condition] Impression: [Abdominal pain-etiology uncertain Anxiety reaction] This note was generated with [employer] software. It may contain incorrect words, spelling, and punctuation that were not noted in review of the chart prior to signing ED Disposition - Plan for ED Patient: Referrals: Care Physician,No Primary [Primary Care Provider] -
--- NOTE | 2020-04-07 03:49 | ED.DEP ---
ED Disposition - Plan for ED Patient: Instructions: ED Abdominal Pain Unkn Cause Fem, ED Panic Attack Prescriptions: Lorazepam [Ativan] 0.5 mg PO TID PRN #10 tab PRN Reason: Anxiety Prescription Printed Ondansetron [Zofran Odt] 4 mg PO Q8H PRN PRN #10 tab PRN Reason: Nausea Prescription Printed Referrals: Care Physician,No Primary [Primary Care Provider] - Michelle Esparza MD [STAFF PHYSICIAN] - 3-5 Days
[2020-04-07 04:17] VITALS: BP 120/60; PULSE 75; RESP 18; O2SAT 97
== END 2020-04-07 04:20 | disposition home or self-care (01) ==
PROVIDERS: Emergency Provider Emergency Medicine
DX: R10.9 Unspecified abdominal pain (principal); F41.9 Anxiety disorder, unspecified
CPT/HCPCS: 80053; 81001; 83690; 84703; 85025; 96361; 96374; 96375; 99285; J7030; A4216; J2405